=== PATIENT | female | born 1980 | race Caucasian/White ===

== ENCOUNTER 2019-06-11 07:33 | Day surgery (SDC) | payer BC ==
[~2019-06-11 07:33] MED LIST: Lidocaine 1%/Sod Bicarbonate in NS 8.4% 1 ML Syringe IDERM PRN; Sodium Chloride 0.9% 10 ML Syringe FLUSH PRN
[2019-06-11] MEDS ORDERED: Propofol 200 MG/20 ML SDV ONE (07:34)
[2019-06-11] MEDS ORDERED: Midazolam 1 MG/ML 2 ML SDV ONE (07:34)
[2019-06-11] MEDS ORDERED: Ondansetron 4 MG/2 ML SDV ONE (07:34)
[2019-06-11] MEDS ORDERED: fentaNYL 250 MCG/5 ML SDV ONE (07:35)
[2019-06-11] MEDS ORDERED: ceFAZolin 1 GM Vial ONE (07:35)
[2019-06-11] MEDS ORDERED: Lidocaine 1% 4 ML ONE (07:35)
[2019-06-11] MEDS ORDERED: Rocuronium 100 MG/10 ML MDV ONE (07:35)
[2019-06-11] MEDS ORDERED: Sodium Chloride 0.9% 50 ML SDV ONE (07:44)
[2019-06-11] MEDS ORDERED: Lidocaine 1% with EPINEPHrine 1:100,000 20 ML MDV ONE (07:44)
[2019-06-11] MEDS: Lactated Ringers 1,000 ML IV SCH ×2 (08:00→11:52)
--- NOTE | 2019-06-11 08:19 | PCM.PREANE ---
Preanesthetic Assessment - Procedure Proposed Procedure: TVH with BS - Anesthesia/Transfusion/Family Hx Anesthesia History: Prior Anesthesia Without Reaction Family History of Anesthesia Reaction: No Transfusion History: No Prior Transfusion(s) - Review of Systems General: No Symptoms Pulmonary: No Symptoms Cardiovascular: No Symptoms Gastrointestinal: No Symptoms Neurological: No Symptoms Other: Reports: None - Physical Assessment NPO Status Date: 06/10/19 NPO Status Time: 00:00 Vital Signs: Last Vital Signs Temp 36.8 C 06/11/19 07:40 Pulse 60 06/11/19 07:40 Resp 16 06/11/19 07:40 BP 115/72 06/11/19 07:40 Pulse Ox 98 06/11/19 07:40 Height: 1.68 m Weight: 62.596 kg ASA Class: 1 Mental Status: Alert & Oriented x3 Airway Class: Mallampati = 1 Dentition: Reports: Normal Dentition Thyro-Mental Finger Breadths: 3 Mouth Opening Finger Breadths: 3 ROM/Head Extension: Full Lungs: Clear to Auscultation Cardiovascular: Regular Rate, Regular Rhythm - Lab Values: Laboratory Last Values Urine Color Yellow (Yellow) 06/11/19 07:43 Urine Appearance Clear (Clear) 06/11/19 07:43 Urine pH 6.0 (5.0-8.0) 06/11/19 07:43 Ur Specific [place] > or = 1.030 (1.005-1.030) 06/11/19 07:43 Urine Protein Negative (Negative) 06/11/19 07:43 Urine Glucose (UA) Negative (Negative) 06/11/19 07:43 Urine Ketones Negative (Negative) 06/11/19 07:43 Urine Occult Blood Trace-lysed (Negative) H 06/11/19 07:43 Urine Nitrite Negative (Negative) 06/11/19 07:43 Urine Bilirubin Negative (Negative) 06/11/19 07:43 Urine Urobilinogen 0.2 (0.2-1.0) 06/11/19 07:43 Ur Leukocyte Esterase Negative (Negative) 06/11/19 07:43 Urine RBC 5-10 /hpf (0-5) H 06/11/19 07:43 Urine WBC 0-5 /hpf (0-5) 06/11/19 07:43 Ur Squamous Epith Cells 0-5 /hpf (0-5) 06/11/19 07:43 Urine Bacteria Few /hpf (FEW) 06/11/19 07:43 Urine Mucus Rare /hpf (FEW) 06/11/19 07:43 Urine HCG, Qual Negative (NEGATIVE) 06/11/19 07:43 - Allergies Allergies/Adverse Reactions: Allergies Allergy/AdvReac Type Severity Reaction Status Date / Time No Known Allergies Allergy Verified 06/10/19 15:01 - Blood Blood Available: Yes Product(s) Available: PRBC - Anesthesia Plan Pre-Op Medication Ordered: None - Acknowledgements Anesthesia Type Planned: General Anesthesia Pt an Appropriate Candidate for the Planned Anesthesia: Yes Alternatives and Risks of Anesthesia Discussed w Pt/Guardian: Yes Pt/Guardian Understands and Agrees with Anesthesia Plan: Yes PreAnesthesia Questionnaire HEENT History: Reports: Impaired Vision, Other (See Below) Other HEENT History: ear surgery Cardiovascular History: Reports: None Respiratory History: Reports: None Gastrointestinal History: Reports: None Genitourinary History: Reports: None [employer]ILD[employer] History: Reports: Other (See Below) Other OB/BYN History: breat lump, fibrocystic breast disease, irregular menses, nabothian cyst, cramps, , yeast vaginitis Musculoskeletal History: Reports: None Neurological History: Reports: None Psychiatric History: Reports: None Endocrine/Metabolic History: Reports: None Hematologic History: Reports: None Immunologic History: Reports: None Oncologic (Cancer) History: Reports: None Dermatologic History: Reports: None - Past Surgical History Head Surgeries/Procedures: Reports: None Cardiovascular Surgical History: Reports: None Respiratory Surgical History: Reports: None GI Surgical History: Reports: None Female Surgical History: Reports: Breast Biopsy Male Surgical History: Reports: None Endocrine Surgical History: Reports: None Neurological Surgical History: Reports: None Musculoskeletal Surgical History: Reports: None Oncologic Surgical History: Reports: None Dermatological Surgical History: Reports: None - SUBSTANCE USE Smoking Status *Q: Former Smoker Tobacco Use Within Last Twelve Months: No Second Hand Smoke Exposure: No Days Per Week of Alcohol Use: 1 Number of Drinks Per Day: 1 Total Drinks Per Week: 1 Recreational Drug Use History: No - HOME MEDS Home Medications: Home Meds Cholecalciferol (Vitamin D3) [Vitamin D3] 1,000 unit PO DAILY 06/10/19 [History] Cyanocobalamin (Vitamin B-12) [Vitamin B-12] 1,000 mcg PO DAILY 06/10/19 [ History] FLUoxetine HCl [Fluoxetine HCl] 20 mg PO DAILY 06/10/19 [History] Mv-Min/Iron/Folic/Calcium/Vitk [Women's Multivitamin Tablet] 1 tab PO DAILY [History] - CURRENT (IN HOUSE) MEDS Current Meds: Current Medications Lactated Ringer's (Ringers, Lactated) 1,000 mls @ 125 mls/hr IV ASDIRECTED PARDEEP Stop: 06/11/19 23:00 Last Admin: 06/11/19 08:00 Dose: 125 mls/hr Lidocaine/Sodium Bicarbonate (Buffered Lidocaine 1% In Ns 8.4%) 0.25 ml IDERM ONETIME PRN PRN Reason: Prior to IV Start Stop: 06/11/19 18:00 Last Admin: 06/11/19 07:59 Dose: 0.25 ml Sodium Chloride (Saline Flush) 10 ml FLUSH ASDIRECTED PRN PRN Reason: Keep Vein Open Stop: 06/11/19 18:00 Discontinued Medications Cefazolin Sodium (Ancef) Confirm Administered Dose 2 gm .ROUTE .STK-MED ONE Stop: 06/11/19 07:36 Fentanyl (Sublimaze) Confirm Administered Dose 250 mcg .ROUTE .STK-MED ONE Stop: 06/11/19 07:36 Lidocaine HCl (Xylocaine-Mpf 1%) Confirm Administered Dose 4 mls @ as directed .ROUTE .STK-MED ONE Stop: 06/11/19 07:36 Lidocaine/Epinephrine (Xylocaine 1% With Epinephrine 1:100,000) Confirm Administered Dose 20 ml .ROUTE .STK-MED ONE Stop: 06/11/19 07:45 Midazolam HCl (Versed 1 Mg/Ml) Confirm Administered Dose 2 mg .ROUTE .STK-MED ONE Stop: 06/11/19 07:35 Ondansetron HCl (Zofran) Confirm Administered Dose 4 mg .ROUTE .STK-MED ONE Stop: 06/11/19 07:35 Propofol (Diprivan 20 Ml) Confirm Administered Dose 200 mg .ROUTE .STK-MED ONE Stop: 06/11/19 07:35 Rocuronium [place] (Zemuron) Confirm Administered Dose 100 mg .ROUTE .STK-MED ONE Stop: 06/11/19 07:36 Sodium Chloride (Normal Saline) Confirm Administered Dose 50 ml .ROUTE .[place] ONE Stop: 06/11/19 07:45
[2019-06-11] MEDS ORDERED: Dexamethasone 4 MG/ML 5 ML MDV ONE (08:49)
[2019-06-11] MEDS ORDERED: Lactated Ringers 1,000 ML ONE (09:05)
[2019-06-11] MEDS ORDERED: HYDROmorphone 0.5 MG/0.5 ML Syringe ONE ×2 (09:14)
[2019-06-11] MEDS ORDERED: Ketorolac 30 MG/ML SDV ONE (09:14)
[2019-06-11] MEDS ORDERED: fentaNYL 100 MCG/2 ML SDV IVPUSH PRN (10:06)
--- NOTE | 2019-06-11 10:07 | PCM.POSTAN ---
POST ANESTHESIA ASSESSMENT - MENTAL STATUS Mental Status: Alert, Oriented - VITAL SIGNS Vital Signs: Last Vital Signs Temp 36.8 C 06/11/19 10:00 Pulse 78 06/11/19 10:00 Resp 18 06/11/19 10:00 BP 111/72 06/11/19 10:00 Pulse Ox 100 06/11/19 10:00 - RESPIRATORY Respiratory Status: Respiratory Rate WNL, Airway Patent, O2 Saturation Stable, Supplemental Oxygen - CARDIOVASCULAR CV Status: Pulse Rate WNL, Blood Pressure Stable - GASTROINTESTINAL GI Status: No Symptoms - PAIN Pain Score: 0 - POST OP HYDRATION Hydration Status: Adequate & Stable - OBSERVATIONS Free Text/Narrative:: NO ANESTHESIA COMPLICATIONS NOTED
[2019-06-11] MEDS ORDERED: Ondansetron 4 MG/2 ML SDV IVPUSH PRN (10:14)
[2019-06-11] MEDS ORDERED: Acetaminophen/oxyCODONE 325-5 MG Tab PO PRN (10:14)
--- NOTE | 2019-06-11 10:18 | PCM.OPNOTE ---
- General Post-Op/Procedure Note Date of Surgery/Procedure: 06/11/19 Operative Procedure(s): Total vaginal hysterectomy with bilateral salpingectomy Findings: Uterus is upper limits normal size. Ovaries bilaterally were within normal limits. Pre Op Diagnosis: 1. Irregular uterine bleeding. 2. Endometrial polyps Post-Op Diagnosis: Same Anesthesia Technique: General ET Tube Other Anesthesia Type: Lidocaine quarter percent with [id number] mL total local Primary Surgeon: Chan Galeana Secondary Surgeon: Carson Valero Anesthesia Provider: Aj Toro Rap Artist: Jackie Wells Reason Rap Artist Was Necessary: Retraction, assistance, patient safety, quality of care Pathology: Uterus tubes and ovaries in one specimen container Fluid Replacement, Intraop: 1,500 EBL in mLs: 25 Complications: None Condition: Good Free Text/Narrative:: Surgery duration: 25 minutes Procedure: The patient was placed in supine position on the operating table. General endotracheal anesthesia was accomplished. After positioning, and adequate prep and drape, the procedure was then performed. Sterile speculum was placed in the vagina and cervix was visualized. Cervix was injected with lidocaine quarter percent with epinephrine-20 mL used. A full circumference incision was made in the cervical epithelium. The bladder was pushed well back off cervix. Posterior cul-de-sac was then entered sharply without problems. Left uterosacral was crossclamped with a Enseal vessel closure system. The left uterosacral and then the right uterosacral ligament pedicles were developed using the Enseal system. The anterior cul-de-sac was then entered without problems and the uterine vasculature, cardinal ligament and broad ligament then developed using Enseal vessel closure system. The uterus was inverted at this time and upper broad ligament fallopian tube pedicles were crossclamped with Max clamps. Specimen was totally removed. Both these pedicles were then secured with Enseal vessel closure system. Ovaries were retained per patient desire. Left and right fallopian tube was normal in appearance.. Using Enseal vessel closure system each of the tubes was then removed and sent with the specimen. The patient was found to be hemostatically intact at this time. Vaginal cuff was sutured for hemostatic reasons with a running locked suture of 0 Monocryl from the 2 o'clock position to the 10 o'clock position posteriorly. Vaginal cuff was then closed from right to left side with a running locked suture of 0 Monocryl. Patient was returned to supine position and awakened from general endotracheal anesthesia. She tolerated the procedure and left the operating room in satisfactory condition.
--- NOTE | 2019-06-11 12:54 | PCM48HPAN ---
Post Anesthesia Note - EVALUATION WITHIN 48HRS OF ANESTHETIC Vital Signs in Normal Range: Yes Patient Participated in Evaluation: Yes Respiratory Function Stable: Yes Airway Patent: Yes Cardiovascular Function Stable: Yes Hydration Status Stable: Yes Pain Control Satisfactory: Yes Nausea and Vomiting Control Satisfactory: Yes Mental Status Recovered: Yes Vital Signs: Last Vital Signs Temp 36.5 C 06/11/19 10:30 Pulse 66 06/11/19 11:00 Resp 16 06/11/19 11:00 BP 117/84 06/11/19 11:00 Pulse Ox 100 06/11/19 11:00
[2019-06-11] MEDS ORDERED: Ketorolac 30 MG/ML SDV IVPUSH ONE (15:30)
[2019-06-11] MEDS ORDERED: Ibuprofen 600 MG Tab PO PRN (21:30)
== END 2019-06-11 12:45 | disposition home or self-care (01) ==
LOC: JD.SDS 07:33
PROVIDERS: ATTEND Obstetrics & Gynecology
DX: N80.0 Endometriosis of uterus (principal); N88.8 Other specified noninflammatory disorders of cervix uteri; N83.8 Other noninflammatory disorders of ovary, fallopian tube and broad ligament; Z87.891 Personal history of nicotine dependence
CPT/HCPCS: 36415; 58262; 81001; 81025; 82565; 85025; 86850; 86900; 86901; A9270; J0690; J1100; J1170; J1885; J2001; J2250; J2405; J2704; J3010; J7120; 00944